=== PATIENT | male | born 1980 | race Two or more races ===

== ENCOUNTER 2023-02-14 15:30 | Inpatient (IN) | payer OTHER ==
[~2023-02-14] VITALS: Ht 172.7 cm; Wt 67.5 kg
[2023-02-14 17:04] LABS: Basophils # (auto) 0 10 ^3/uL (0-0.2); Basophils % (auto) 0.3 % (0.0-2.0); Eosinophils # (auto) 0 10 ^3/uL (0-0.8); Eosinophils % (auto) 0.1 % (0.0-7.0); Hematocrit 48.6 % (41.0-53.0); Hemoglobin 16.4 g/dL (13.5-17.5); Lymphocytes # (auto) 1.4 10 ^3/uL (0.4-5.4); Mean Corpuscular Hemoglobin 31.5 pg (28.0-32.0); Mean Corpuscular Hgb Conc. 33.7 g/dL (32.0-36.0); Mean Corpuscular Volume 93.2 fL (80.0-100.0); Monocytes # (auto) 0.3 10 ^3/uL (0-1.3); Monocytes % (auto) 2.4 % (0.0-12.0); Neutrophils % (auto) 87.2 % (37.0-80.0); Nucleated Red Blood Cells % 0.2 %; Red Blood Cells 5.22 10^6/uL (4.5-5.90); Red Cell Distribution Width 13.3 % (11.8-14.3); White Blood Cell 13.8 10^3/uL (4.4-10.8)
[2023-02-14 17:22] LABS: Lactic Acid w/Reflex 2.7 mmol/L (0.4-2.0)
[2023-02-14 17:23] LABS: Alanine Aminotransferase 30 U/L (7-40); Albumin 4.9 g/dL (3.2-4.8); Alkaline Phosphatase 84 U/L (46-116); Anion Gap 12 (5-15); Aspartate Aminotransferase 23 U/L (13-40); BUN/Creatinine Ratio 14.7 (10.0-20.0); Bilirubin, Total 1.1 mg/dL (0.2-1.0); Blood Urea Nitrogen 16 mg/dL (9-23); Calcium 9.8 mg/dL (8.7-10.4); Carbon Dioxide 23 mmol/L (20-30); Chloride 106 mmol/L (98-107); Glucose 138 mg/dL (74-106); Potassium 3.6 mmol/L (3.5-5.1); Sodium 141 mmol/L (136-145); Total Protein 7.2 g/dL (5.7-8.2)
[2023-02-14 17:26] LABS: Amphetamine Screen, Urine Pos (NEGATIVE); Barbiturate Scree,Urine Neg (NEGATIVE); Benzodiazephine Screen, Urine Neg (NEGATIVE); Cannabinoid Screen, Urine Pos (NEGATIVE); Cocaine Screen, Urine Neg (NEGATIVE); Opiate Scree,Urine Neg (NEGATIVE); Phencyclidine Screen, Urine Neg (NEGATIVE)
[2023-02-14 17:58] LABS: Urine Bacteria NONE SEEN /hpf (None Seen); Urine Blood Negative /uL (Negative); Urine Clarity Clear (Clear); Urine Color Yellow (Yellow); Urine Mucus FEW (None Seen); Urine Protein, UAD TRACE (Negative); Urine Specific Gravity 1.027 (1.001-1.035); Urine WBC 4 /hpf (0 - 3); Urine pH 6.5 (5.0-8.0)
[2023-02-14 18:13] LABS: Blood Alcohol < 3.0 mg/dL (<10)
[2023-02-14 18:54] VITALS: PULSE 64; RESP 15; O2SAT 97
[2023-02-14 19:35] VITALS: PULSE 85; RESP 22; O2SAT 96
[2023-02-14] MEDS ORDERED: KETOROLAC TROMETH 30 MG/ML 1ML VIAL IV ONE (19:45)
[2023-02-14] MEDS ORDERED: PROMETHAZINE HCL 25 MG/ML 1ML IV ONE (19:45)
[2023-02-14] MEDS ORDERED: KETOROLAC TROMETH 60MG/2ML VIAL ONE (19:51)
[2023-02-14] MEDS ORDERED: SODIUM CHLORIDE 0.9% 1,000 ML IV ONE (20:00)
[2023-02-14] MEDS ORDERED: HYDROcodone-ACET 5/325MG TAB PO PRN (21:30)
[2023-02-14] MEDS ORDERED: DOCUSATE SOD 100 MG CAP PO PRN (21:30)
[2023-02-14] MEDS ORDERED: TEMAZEPAM 15 MG CAP PO PRN (21:30)
[2023-02-14] MEDS ORDERED: ONDANSETRON HCL 4 MG/2 ML VIAL IV PRN (21:30)
[2023-02-14] MEDS ORDERED: MORPHINE SULFATE INJ 2 MG/ml SYRG IV PRN ×2 (21:30)
[2023-02-14] MEDS ORDERED: ACETAMINOPHEN 325 MG TAB PO PRN (21:30)
[2023-02-14] MEDS ORDERED: NITROGLYCERIN 0.4 MG SL TAB SL PRN (21:30)
[2023-02-14] MEDS ORDERED: ENOXAPARIN SOD 60 MG/0.6 ML SYRINGE SC SCH (22:00)
[2023-02-14] MEDS: SODIUM CHLORIDE 0.9% 1,000 ML IV SCH (22:37)
[2023-02-14] MEDS: ASCORBIC ACID 500 MG TAB PO SCH (22:37)
[2023-02-15] VITALS (8 sets, daily range): BP systolic 104–114; BP diastolic 63–77; PULSE 75–101; RESP 14–22; TEMP 98.3; O2SAT 94–96
[2023-02-15 05:57] LABS: Basophils # (auto) 0 10 ^3/uL (0-0.2); Basophils % (auto) 0.1 % (0.0-2.0); Eosinophils # (auto) 0 10 ^3/uL (0-0.8); Eosinophils % (auto) 0.5 % (0.0-7.0); Hematocrit 41.6 % (41.0-53.0); Hemoglobin 14.4 g/dL (13.5-17.5); Lymphocytes % (auto) 20.6 % (10.0-50.0); Mean Corpuscular Hemoglobin 32.5 pg (28.0-32.0); Mean Corpuscular Hgb Conc. 34.6 g/dL (32.0-36.0); Mean Corpuscular Volume 93.7 fL (80.0-100.0); Monocytes # (auto) 0.5 10 ^3/uL (0-1.3); Monocytes % (auto) 5.6 % (0.0-12.0); Neutrophils % (auto) 73.2 % (37.0-80.0); Nucleated Red Blood Cells % 0.1 %; Red Blood Cells 4.44 10^6/uL (4.5-5.90); Red Cell Distribution Width 13.4 % (11.8-14.3); White Blood Cell 9.6 10^3/uL (4.4-10.8)
[2023-02-15 06:10] LABS: Alanine Aminotransferase 20 U/L (7-40); Albumin 4.2 g/dL (3.2-4.8); Alkaline Phosphatase 71 U/L (46-116); Anion Gap 12 (5-15); Aspartate Aminotransferase 20 U/L (13-40); BUN/Creatinine Ratio 10.4 (10.0-20.0); Blood Urea Nitrogen 10 mg/dL (9-23); Calcium 8.9 mg/dL (8.7-10.4); Carbon Dioxide 20 mmol/L (20-30); Chloride 110 mmol/L (98-107); Glucose 93 mg/dL (74-106); Potassium 3.6 mmol/L (3.5-5.1); Sodium 142 mmol/L (136-145); Total Protein 6.4 g/dL (5.7-8.2)
[2023-02-15] MEDS: SODIUM CHLORIDE 0.9% 1,000 ML IV SCH ×3 (06:10→22:30)
[2023-02-15] MEDS ORDERED: ASPirin 325 MG TAB PO ONE (08:00)
[2023-02-15] MEDS ORDERED: HEPARIN SODIUM (PORCINE) 5000 UNITS/ML 1ML VIAL IV ONE (08:15)
[2023-02-15] MEDS ORDERED: HEPARIN DRIP/D5W 100UNITS/ML 250 ML IV SCH (08:15)
[2023-02-15 08:50] LABS: INR 1.14 (0.9-1.15); Prothrombin Time 11.9 sec (9.3-11.8)
[2023-02-15] MEDS: MULTIPLE VITAMIN TAB PO SCH (09:30)
[2023-02-15] MEDS: ASCORBIC ACID 500 MG TAB PO SCH ×2 (09:30→20:48)
[2023-02-15] MEDS: ZINC SULFATE 220mg CAP or TAB PO SCH (11:58)
[2023-02-15] MEDS ORDERED: IODIXANOL 320MG/ML 100ML BTL IV ONE (16:09)
[2023-02-15] MEDS ORDERED: LIDOCAINE 2%HCL (LOCAL ANESTH.) INJ 20ML MDV ONE (16:09)
[2023-02-15] MEDS ORDERED: HEPARIN SODIUM (PORCINE) 5000 UNITS/ML 1ML VIAL ONE (16:18)
[2023-02-15] MEDS ORDERED: VERAPAMIL 2.5MG/ML INJ 2ML VIAL IV ONE (16:18)
[2023-02-15] MEDS ORDERED: fentaNYL CITRATE 100 MCG/2 ML VL ONE (16:18)
[2023-02-15] MEDS ORDERED: ANGIOMAX 250 MG VIAL IV ONE (16:18)
[2023-02-15] MEDS ORDERED: MIDAZOLAM HCL 2MG/2ML 2ml VIAL (1mg/ml) ONE (16:18)
[2023-02-15] MEDS ORDERED: SODIUM CHL 0.9% 0 ML ONE (16:19)
[2023-02-15] MEDS ORDERED: INFLUENZA QUAD 2023-2024 0.5 ML SYRG IM ONE (18:45)
[2023-02-15 19:55] LABS: INR 1.12 (0.9-1.15); Partial Thromboplastin Time 46.3 SEC (24.5-34.5); Prothrombin Time 11.7 sec (9.3-11.8)
[2023-02-15] MEDS ORDERED: ATORVASTATIN 20 MG TAB PO SCH (22:00)
[2023-02-16 04:58] VITALS: BP 104/62; PULSE 66; RESP 16; TEMP 97.7; O2SAT 96
[2023-02-16 05:44] LABS: LDL Cholesterol 166 mg/dL (< 100); Triglycerides 101 mg/dL (< 150)
[2023-02-16 05:46] LABS: Cholesterol 222 mg/dL (< 200); HDL Cholesterol 38 mg/dL (40-59)
[2023-02-16] MEDS: SODIUM CHLORIDE 0.9% 1,000 ML IV SCH (06:45)
[2023-02-16 08:00] VITALS: BP 114/69; PULSE 62; PULSE 71; RESP 20; TEMP 97.9; O2SAT 97
[2023-02-16 08:44] VITALS: BP 114/69; PULSE 62; RESP 20; TEMP 97.9; O2SAT 97
[2023-02-16] MEDS ORDERED: ASPI-325 PO (09:24)
[2023-02-16] MEDS ORDERED: ATOR20TA50 PO (09:24)
[2023-02-16] MEDS ORDERED: INFLUENZA QUAD 2023-2024 0.5 ML SYRG IM ONE (09:45)
[2023-02-16] MEDS: ASCORBIC ACID 500 MG TAB PO SCH (09:52)
[2023-02-16] MEDS: ZINC SULFATE 220mg CAP or TAB PO SCH (09:53)
[2023-02-16] MEDS: MULTIPLE VITAMIN TAB PO SCH (09:53)
[2023-02-16] MEDS ORDERED: ASPirin 81 mg TAB PO SCH (10:00)
[2023-02-16 10:20] VITALS: BP 114/69; PULSE 62; RESP 20; TEMP 97.9; O2SAT 97
== END 2023-02-16 11:08 | disposition home or self-care (01) | DRG 190 ==
LOC: EDBD 15:30 → ER 15:30 → EDUNIT# 15:30 → TELE 15:43 → TELE-WESTW 02-15 17:55
PROVIDERS: ADMIT Internal Medicine; ATTEND Internal Medicine
PROC: 4A023N7 Measurement of Cardiac Sampling and Pressure, Left Heart, Percutaneous Approach (ICD-10-PCS; principal; 2023-02-15)
PROC: B211YZZ Fluoroscopy of Multiple Coronary Arteries using Other Contrast (ICD-10-PCS; 2023-02-15)
PROC: B215YZZ Fluoroscopy of Left Heart using Other Contrast (ICD-10-PCS; 2023-02-15)
DX: I21.4 Non-ST elevation (NSTEMI) myocardial infarction (principal); E78.5 Hyperlipidemia, unspecified; F15.10 Other stimulant abuse, uncomplicated; H54.8 Legal blindness, as defined in USA; F17.210 Nicotine dependence, cigarettes, uncomplicated; Z79.82 Long term (current) use of aspirin; Z82.49 Family history of ischemic heart disease and other diseases of the circulatory system; F12.90 Cannabis use, unspecified, uncomplicated
CPT/HCPCS: 36415; 70450; 71045; 80053; 80061; 80307; 80320; 81001; 82550; 83605; 83880; 84484; 85025; 85379; 85610; 85730; 90686; 93005; 93306; 93458; 93886; 96361; 96372; 96374; 96375; 99152; G0378; J1885; J2250; Q9967